=== PATIENT | female | born 1950 | race Caucasian/White ===

== ENCOUNTER 2018-05-08 07:05 | Emergency (ER) | payer MEDICARE ==
[2018-05-08] MEDS ORDERED: NACL 0.9% 1000 ML 1,000 ML IV ONE (07:19)
[2018-05-08] MEDS ORDERED: ZOFRAN IV ONE (07:21)
--- NOTE | 2018-05-08 07:24 | Emergency Department Report ---
ED General Adult HPI - General Chief complaint: Weakness Stated complaint: WEAKNESS Time Seen by Provider: 05/08/18 07:18 Source: family, EMS Mode of arrival: Stretcher Limitations: Language Barrier - History of Present Illness Initial comments: Patient is 67 years old English female, translation by her daughter. Patient brought to the emergency room via EMS. Patient is complaining of generalized weakness and feeling tired and fatigued for the last 4 days. Patient denied any history of chest pain or shortness of breath. No abdominal pain but she is slightly nauseated according to the family. No diarrhea. Patient denied any fever or chills. No cough. - Related Data Previous Rx's Medication Instructions Recorded Last Taken Type Ondansetron [Zofran Odt] 4 mg PO Q8HR PRN #14 tab.rapdis 05/08/18 Unknown Rx traMADol [Ultram 50 MG tab] 50 mg PO Q4HR PRN #14 tablet 05/08/18 Unknown Rx Allergies Allergy/AdvReac Type Severity Reaction Status Date / Time No Known Allergies Allergy Unverified 05/08/18 07:56 ED Review of Systems ROS: Stated complaint: WEAKNESS Other details as noted in HPI Comment: All other systems reviewed and negative Constitutional: denies: chills, fever Respiratory: denies: cough, orthopnea, shortness of breath, SOB with exertion Cardiovascular: denies: chest pain, palpitations, dyspnea on exertion, orthopnea Gastrointestinal: nausea. denies: abdominal pain, vomiting, diarrhea, constipation, hematemesis, melena, hematochezia Musculoskeletal: denies: back pain Neurological: headache, weakness (generalized). denies: numbness, paresthesias, confusion, abnormal gait ED Past Medical Hx - Past Medical History Hx Hypertension: Yes Hx Diabetes: Yes Hx GERD: Yes - Social History Smoking Status: Never Smoker - Medications Home Medications: Home Medications Medication Instructions Recorded Confirmed Last Taken Type Ondansetron [Zofran Odt] 4 mg PO Q8HR PRN #14 tab.rapdis 05/08/18 Unknown Rx traMADol [Ultram 50 MG tab] 50 mg PO Q4HR PRN #14 tablet 05/08/18 Unknown Rx ED Physical Exam - General Limitations: Language Barrier General appearance: alert, in no apparent distress - Head Head exam: Present: atraumatic, normocephalic, normal inspection - Eye Eye exam: Present: normal appearance, PERRL - ENT ENT exam: Present: normal exam, normal orophraynx, mucous membranes moist - Neck Neck exam: Present: normal inspection, full ROM. Absent: tenderness, meningismus, lymphadenopathy, thyromegaly - Respiratory Respiratory exam: Present: normal lung sounds bilaterally. Absent: respiratory distress, wheezes, rales, rhonchi, stridor, accessory muscle use, decreased breath sounds, prolonged expiratory - Cardiovascular Cardiovascular Exam: Present: regular rate, normal rhythm, normal heart sounds - GI/Abdominal GI/Abdominal exam: Present: soft, normal bowel sounds. Absent: distended, tenderness, guarding, rebound, rigid, organomegaly, mass, bruit, pulsatile mass, hernia - Extremities Exam Extremities exam: Present: normal inspection, full ROM, normal capillary refill. Absent: pedal edema, calf tenderness - Back Exam Back exam: Present: normal inspection, full ROM. Absent: tenderness, CVA tenderness (R), CVA tenderness (L), muscle spasm, paraspinal tenderness, vertebral tenderness - Neurological Exam Neurological exam: Present: alert, oriented X3, CN II-XII intact, normal gait, reflexes normal - Psychiatric Psychiatric exam: Present: normal mood - Skin Skin exam: Present: warm, intact, normal color ED Course Vital Signs 05/08/18 05/08/18 05/08/18 07:54 08:46 10:00 Temperature 98.7 F Pulse Rate 87 82 81 Respiratory 26 H 23 27 H Rate Blood Pressure 111/58 99/57 Blood Pressure 111/58 [Left] O2 Sat by Pulse 96 97 98 Oximetry 05/08/18 05/08/18 11:49 13:30 Temperature Pulse Rate 82 87 Respiratory 14 21 Rate Blood Pressure Blood Pressure 104/57 113/51 [Left] O2 Sat by Pulse 97 98 Oximetry - Consultations Consultation #1: 05/08/18 13:03 I discussed the patient with Dr. Ramírez Sanders from vascular surgery, I informed him about the CT chest which showed a 4.2 cm thoracic aneurysmal medication with no dissection or rupture. Dr. Sanders advised patient to follow-up with him in his office in the next 3 days. 05/08/18 15:34 ED Medical Decision Making - Lab Data Result diagrams: 05/08/18 07:37 05/08/18 07:37 - EKG Data -: EKG Interpreted by Tn EKG shows normal: sinus rhythm Rate: normal - EKG Data Interpretation: no acute changes - Radiology Data Radiology results: report reviewed Referring Physician: DEDE GOYAL Patient Name: SAVANNAH WILBURN Date of : 1950 Sex: Female Report Date: 2018-05-08 Report Status: Finalized Findings [facility] [address] [place] [address] Cat Scan Report Signed Patient: SAVANNAH WILBURN MR#: [id number] : 1950 Acct:[id number] Age/Sex: 67 / F ADM Date: 05/08/18 Loc: ED Attending Dr: Ordering Physician: DEDE GOYAL Date of Service: 05/08/18 Procedure(s): CT head/brain wo con Accession Number(s): [id number] cc: DEDE GOYAL PROCEDURE: CT HEAD/BRAIN WO CON TECHNIQUE: Computerized tomography of the head was performed without contrast material. CT DOSE LENGTH PRODUCT: 920.48 mGy-cm. HISTORY: Weakness COMPARISONS: None currently available. FINDINGS: There is no evidence for acute ischemia. There is no hemorrhage. There is no midline shift. There is no hydrocephalus. There is no mass. Age appropriate villalpando-white matter attenuation is noted. There is no calvarial fracture. The temporal bones demonstrate aerated mastoid air cells. The middle ears appear unremarkable. Mild to moderate mucosal thickening in both ethmoid sinuses. Globes are intact. IMPRESSION: * No acute intracranial findings. This document is electronically signed by Hitesh Correa MD., May 08 2018 09:38:12 AM ET Transcribed By: TYM Dictated By: HITESH CORREA MD Electronically Authenticated By: HITESH CORREA MD Signed Date/Time: 05/08/18 0940 Referring Physician: DEDE GOYAL Patient Name: SAVANNAH WILBURN Date of : 1950 Sex: Female Report Date: 2018-05-08 Report Status: Finalized Findings [facility] [address] [place] [address] XRay Report Signed Patient: SAVANNAH WILBURN MR#: [id number] : 1950 Acct:[id number] Age/Sex: 67 / F ADM Date: 05/08/18 Loc: ED Attending Dr: Ordering Physician: DEDE GOYAL Date of Service: 05/08/18 Procedure(s): XR chest 1V ap Accession Number(s): [id number] cc: DEDE GOYAL Fluoro Time In Minutes: PROCEDURE: XR CHEST 1V AP TECHNIQUE: Chest radiograph, portable upright frontal view. HISTORY: Weakness COMPARISONS: None currently available. FINDINGS: Cardiac silhouette is within normal limits. There is no effusion. There is no pneumothorax. There is no consolidation. There are no suspicious osseous lesions. IMPRESSION: * No acute cardiopulmonary findings. This document is electronically signed by Hitesh Correa MD., May 08 2018 09:38:44 AM ET Transcribed By: TYM Dictated By: HITESH CORREA MD Electronically Authenticated By: HITESH CORREA MD Signed Date/Time: 05/08/18939 DD/ 0832 TD/TT: 05/08/18 0833 DD/ 0809 TD/TT: 05/08/18 0810 Referring Physician: DEDE GOYAL Patient Name: SAVANNAH WILBURN Date of : 1950 Sex: Female Report Date: 2018-05-08 Report Status: [place] [address] Cat Scan Report Signed Patient: SAVANNAH WILBURN MR#: [id number] : 1950 Acct:[id number] Age/Sex: 67 / F ADM Date: 05/08/18 Loc: ED Attending Dr: Ordering Physician: DEDE GOYAL Date of Service: 05/08/18 Procedure(s): CT angio chest Accession Number(s): [id number] cc: DEDE GOYAL EXAM: CT ANGIO CHEST HISTORY: WEAKNESS, TACHYPNEA,ELEVATED D-DIMER TECHNIQUE: Spiral axial CT images with sagittal and coronal reformatted images are obtained through the chest with the administration of intravenous contrast. COMPARISON: None available. FINDINGS: CARDIOVASCULAR: There is no evidence for pulmonary embolic disease. The heart size is within normal limits. No pericardial effusion is seen. There is a 4.2 cm aneurysmal dilatation of the ascending thoracic aorta, without evidence for aortic dissection or rupture. MEDIASTINUM AND MOISES: No mass lesion, lymphadenopathy, emphysema, or abnormal fluid collection is seen. LUNGS: There is no acute parenchymal infiltrate, lung nodule, or endobronchial obstructing lesion seen. No pleural effusion or pneumothorax is evident. CHEST WALL: There are no chest wall lesions seen. Multilevel degenerative disease is seen in the thoracic spine. The visualized bony structures are otherwise within normal l imits. No axillary lymphadenopathy is noted. UPPER ABDOMEN: Limited views through the upper abdomen demonstrate no gross acute abnormality. IMPRESSION: 1. No evidence for pulmonary embolic disease. 2. Up to 4.2 cm aneurysmal dilatation of the ascending thoracic aorta; no dissection or rupture. 3. No acute parenchymal infiltrate, pleural effusion, endobronchial obstructing lesion or pneumothorax seen. This document is electronically signed by Jiemna Ashton MD., May 08 2018 12:16:07 PM ET Transcribed By: [facility] Dictated By: JIMENA ASHTON Electronically Authenticated By: JIMENA ASHTON Signed Date/Time: 05/08/18 1218 DD/ 1147 TD/TT: 05/08/18 1147 - Medical Decision Making Patient is 67 years old English female, translation by her daughter. Patient brought to the emergency room via EMS. Patient is complaining of generalized weakness and feeling tired and fatigued for the last 4 days. Patient denied any history of chest pain or shortness of breath. No abdominal pain but she is slightly nauseated according to the family. No diarrhea. Patient denied any fever or chills. No cough. Patient stated that she is feeling much better and asking for food. Labs reviewed that is unremarkable except for elevated d-dimer for which a CTA chest was order which did not show any pulmonary embolism or other pulmonary pathology it showed a 4.2 cm thoracic aortic aneurysmal dilatation. I discussed the patient with Dr. Ramírez Sanders from vascular surgeon, he advised that patient can be discharged home and to follow up with him in his office in the next 2-3 days. I discussed the finding of the CT chest with the patient and her daughter and informed them about the aneurysm and the seriousness of her condition if aneurysm rupture and the urgent need to follow-up with Dr. Ramírez Sanders. Both understood the instructions very well and stated that there will follow-up with Dr. Ramírez Sanders in the next 2-3 days. I also advised them to return to the ER if patient develop new symptoms. Critical care attestation.: If time is entered above; I have spent that time in minutes in the direct care of this critically ill patient, excluding procedure time. ED Disposition Clinical Impression: Headache, Weakness, Thoracic aortic aneurysm, without rupture Disposition: DC- TO HOME OR SELFCARE Is pt being admited?: No Condition: Stable Instructions: Thoracic Aortic Aneurysm (ED), Weakness (ED) Prescriptions: traMADol [Ultram 50 MG tab] 50 mg PO Q4HR PRN #14 tablet PRN Reason: Pain Ondansetron [Zofran Odt] 4 mg PO Q8HR PRN #14 tab.rapdis PRN Reason: Nausea And Vomiting Referrals: RAMÍREZ SANDERS MD [Staff Physician] - 3-5 Days
[2018-05-08 08:18] LABS: Basophils % (Auto) 0.4 % (0.0-1.8); Eosinophils # (Auto) 0.1 K/mm3 (0.0-0.4); Eosinophils % (Auto) 1.9 % (0.0-4.3); Hematocrit 34.4 % (30.3-42.9); Hemoglobin 11.7 gm/dl (10.1-14.3); Lymphocytes # (Auto) 0.4 K/mm3 (1.2-5.4); Lymphocytes % (Auto) 13.1 % (13.4-35.0); Mean Corpuscular HGB Conc 34 % (30-34); Mean Corpuscular Volume 96 fl (79-97); Monocytes # (Auto) 0.3 K/mm3 (0.0-0.8); Monocytes % (Auto) 10.6 % (0.0-7.3); Red Blood Count 3.59 M/mm3 (3.65-5.03); Red Cell Distribution Width 13.2 % (13.2-15.2)
[2018-05-08 08:20] LABS: Platelet Count 83 K/mm3 (140-440)
[2018-05-08 08:23] LABS: BUN/Creatinine Ratio 20; Blood Urea Nitrogen 14 mg/dL (7-17); Calcium 7.7 mg/dL (8.4-10.2); Hemolysis Index 5
[2018-05-08 08:24] LABS: Bacteria,Urine 1+ /HPF (Negative); Bilirubin,Urine NEG (Negative); Blood,Urine MOD (Negative); Color,Urine Yellow (Yellow); Mucus,Urine 1+ /HPF; Urobilinogen,Urine < 2.0 mg/dL (<2.0)
[2018-05-08 08:26] LABS: Alanine Aminotransferase 49 units/L (7-56); Albumin 3.5 g/dL (3.9-5)
[2018-05-08 08:28] LABS: INR 0.99 (0.87-1.13)
[2018-05-08 08:31] LABS: Bilirubin,Direct < 0.2 mg/dL (0-0.2)
--- NOTE | 2018-05-08 09:40 | XRay Report ---
PROCEDURE: XR CHEST 1V AP TECHNIQUE: Chest radiograph, portable upright frontal view. HISTORY: Weakness COMPARISONS: None currently available. FINDINGS: Cardiac silhouette is within normal limits. There is no effusion. There is no pneumothorax. There is no consolidation. There are no suspicious osseous lesions. IMPRESSION: * No acute cardiopulmonary findings. This document is electronically signed by Hitesh Henry MD., May 08 2018 09:38:44 AM ET
--- NOTE | 2018-05-08 09:40 | Cat Scan Report ---
PROCEDURE: CT HEAD/BRAIN WO CON TECHNIQUE: Computerized tomography of the head was performed without contrast material. CT DOSE LENGTH PRODUCT: 920.48 mGy-cm. HISTORY: Weakness COMPARISONS: None currently available. FINDINGS: There is no evidence for acute ischemia. There is no hemorrhage. There is no midline shift. There is no hydrocephalus. There is no mass. Age appropriate villalpando-white matter attenuation is noted. There is no calvarial fracture. The temporal bones demonstrate aerated mastoid air cells. The middle ears appear unremarkable. Mild to moderate mucosal thickening in both ethmoid sinuses. Globes are intact. IMPRESSION: * No acute intracranial findings. This document is electronically signed by Hitesh Henry MD., May 08 2018 09:38:12 AM ET
--- NOTE | 2018-05-08 12:18 | Cat Scan Report ---
EXAM: CT ANGIO CHEST HISTORY: WEAKNESS, TACHYPNEA,ELEVATED D-DIMER TECHNIQUE: Spiral axial CT images with sagittal and coronal reformatted images are obtained through the chest with the administration of intravenous contrast. COMPARISON: None available. FINDINGS: CARDIOVASCULAR: There is no evidence for pulmonary embolic disease. The heart size is within normal l imits. No pericardial effusion is seen. There is a 4.2 cm aneurysmal dilatation of the ascending thor acic aorta, without evidence for aortic dissection or rupture. MEDIASTINUM AND MOISES: No mass lesion, lymphadenopathy, emphysema, or abnormal fluid collection is see n. LUNGS: There is no acute parenchymal infiltrate, lung nodule, or endobronchial obstructing lesion see n. No pleural effusion or pneumothorax is evident. CHEST WALL: There are no chest wall lesions seen. Multilevel degenerative disease is seen in the thor acic spine. The visualized bony structures are otherwise within normal limits. No axillary lymphaden opathy is noted. UPPER ABDOMEN: Limited views through the upper abdomen demonstrate no gross acute abnormality. IMPRESSION: 1. No evidence for pulmonary embolic disease. 2. Up to 4.2 cm aneurysmal dilatation of the ascending thoracic aorta; no dissection or rupture. 3. No acute parenchymal infiltrate, pleural effusion, endobronchial obstructing lesion or pneumothor ax seen. This document is electronically signed by Sarai Akers MD., May 08 2018 12:16:07 PM ET
[2018-05-08] MEDS ORDERED: TYLENOL ONE (13:00)
[2018-05-08] MEDS ORDERED: TYLENOL PO ONE (13:00)
[2018-05-08 13:30] VITALS: BP 113/51
== END 2018-05-08 13:33 | disposition home or self-care (01) ==
LOC: ED 07:05
DX: I71.2 Thoracic aortic aneurysm, without rupture (principal); R53.1 Weakness; R51 Headache; I10 Essential (primary) hypertension; E11.9 Type 2 diabetes mellitus without complications; K21.9 Gastro-esophageal reflux disease without esophagitis
CPT/HCPCS: 36415; 70450; 71045; 71275; 80048; 80076; 81001; 83690; 84484; 85025; 85379; 85610; 93005; 93010; 96374; 99285; J2405; J7030; Q9967

== ENCOUNTER 2019-12-22 12:10 | Outpatient (CLI) | payer MEDICARE ==
[2019-12-22 13:05] LABS: Blood Urea Nitrogen 10 mg/dL (7-17)
--- NOTE | 2019-12-22 16:32 | Cat Scan Report ---
CT angio chest INDICATION / CLINICAL INFORMATION: THORACIC AORTIC ANEURYSM W/O RUPTURE. TECHNIQUE: Axial CT images were obtained after injection of 100 cc of Omnipaque 350 IV contrast using CTA protoc ol. 3 plane MIP / 3D reconstructions were produced. All CT scans at this location are performed using CT dose reduction for ALARA by means of automated exposure control. COMPARISON: 11/22/2018 FINDINGS: Mild aneurysmal dilatation is again seen in the ascending thoracic aorta unchanged in size or appeara nce. No dissection is present. Other than mild atherosclerotic change, no abnormalities are seen in t he aortic arch or the descending thoracic aorta. No significant parenchymal abnormality is seen in th e lungs. No enlarged mediastinal or hilar lymph nodes are identified. Mild cardiomegaly is present. O ther than degenerative change in the spine, no significant skeletal abnormality is seen. IMPRESSION: Mild aneurysmal dilatation of the ascending thoracic aorta unchanged from 11/22/2018. Mild cardiomegal y persists unchanged Signer Name: Frandy MAN Signed: 12/22/2019 4:27 PM Workstation Name: [id number]
== END 2019-12-22 12:11 | disposition home or self-care (01) ==
LOC: CT 12:10
PROVIDERS: ATTEND Radiology Diagnostic Radiology
DX: I71.2 Thoracic aortic aneurysm, without rupture (principal); I51.7 Cardiomegaly
CPT/HCPCS: 36415; 71275; 82565; 84520; Q9967